=== PATIENT | female | born 1985 | race Two or more races ===

== ENCOUNTER → 2023-05-12 | Outpatient (CLI) | payer OTHER ==
[2023-05-12 11:40] LABS: Basophils # (auto) 0 10 ^3/uL (0-0.2); Basophils % (auto) 0.6 % (0.0-2.0); Eosinophils # (auto) 0.3 10 ^3/uL (0-0.8); Eosinophils % (auto) 4.8 % (0.0-7.0); Hemoglobin 12.2 g/dL (12.2-16.2); Lymphocytes # (auto) 3.2 10 ^3/uL (0.4-5.4); Lymphocytes % (auto) 51.7 % (10.0-50.0); Mean Corpuscular Hemoglobin 30.7 pg (28.0-32.0); Mean Corpuscular Hgb Conc. 32.2 g/dL (32.0-36.0); Mean Corpuscular Volume 95.3 fL (80.0-100.0); Monocytes # (auto) 0.3 10 ^3/uL (0-1.3); Monocytes % (auto) 5.1 % (0.0-12.0); Neutrophils # (auto) 2.3 10 ^3/uL (1.6-8.6); Neutrophils % (auto) 37.8 % (37.0-80.0); Red Blood Cells 3.98 10^6/uL (4.0-5.20); Red Cell Distribution Width 14.7 % (11.8-14.3); White Blood Cell 6.2 10^3/uL (4.4-10.8)
[2023-05-12 11:51] LABS: Urine Bacteria NONE SEEN /hpf (None Seen); Urine Blood Negative /uL (Negative); Urine Clarity Clear (Clear); Urine Color Yellow (Yellow); Urine Mucus FEW (None Seen); Urine Protein, UAD Negative (Negative); Urine Specific Gravity 1.025 (1.001-1.035); Urine Urobilinogen Normal (Negative); Urine WBC 1 /hpf (0 - 5); Urine pH 5.5 (5.0-8.0)
[2023-05-12 12:54] LABS: Alanine Aminotransferase 14 U/L (7-40); Albumin 4.6 g/dL (3.2-4.8); Alkaline Phosphatase 65 U/L (46-116); Anion Gap 7 (5-15); Aspartate Aminotransferase 15 U/L (13-40); Blood Urea Nitrogen 7 mg/dL (9-23); Calcium 9.5 mg/dL (8.5-10.1); Carbon Dioxide 26 mmol/L (20-30); Chloride 106 mmol/L (98-107); Cholesterol 173 mg/dL (< 200); Glucose 184 mg/dL (74-106); LDL Cholesterol 89 mg/dL (< 100); Sodium 139 mmol/L (136-145); Triglycerides 117 mg/dL (< 150)
[2023-05-12 12:55] LABS: Bilirubin, Total 0.5 mg/dL (0.2-1.0); HDL Cholesterol 47 mg/dL (40-59); Total Protein 8.1 g/dL (5.7-8.2)
[2023-05-12 13:01] LABS: % Iron Saturation 8.7 % (15-50)
[2023-05-12 13:37] LABS: Uric Acid 3.2 mg/dL (3.1-7.8)
== END | disposition home or self-care (01) ==
LOC: LAB 10:47
PROVIDERS: ATTEND Family Medicine
DX: E11.8 Type 2 diabetes mellitus with unspecified complications (principal); Z76.89 Persons encountering health services in other specified circumstances
CPT/HCPCS: 80053; 80061; 81001; 82306; 82607; 82785; 83036; 83540; 83550; 84443; 84550

== ENCOUNTER → 2023-06-03 | Outpatient (CLI) | payer OTHER ==
[2023-06-03 11:08] LABS: Basophils # (auto) 0.1 10 ^3/uL (0-0.2); Basophils % (auto) 0.8 % (0.0-2.0); Eosinophils # (auto) 0.2 10 ^3/uL (0-0.8); Eosinophils % (auto) 3.6 % (0.0-7.0); Hematocrit 36.5 % (36.0-46.0); Hemoglobin 11.8 g/dL (12.2-16.2); Lymphocytes # (auto) 2.5 10 ^3/uL (0.4-5.4); Mean Corpuscular Hemoglobin 30.7 pg (28.0-32.0); Mean Corpuscular Hgb Conc. 32.3 g/dL (32.0-36.0); Mean Corpuscular Volume 94.9 fL (80.0-100.0); Monocytes # (auto) 0.3 10 ^3/uL (0-1.3); Monocytes % (auto) 5.1 % (0.0-12.0); Neutrophils # (auto) 3.3 10 ^3/uL (1.6-8.6); Neutrophils % (auto) 51.5 % (37.0-80.0); Red Blood Cells 3.85 10^6/uL (4.0-5.20); Red Cell Distribution Width 14.1 % (11.8-14.3); White Blood Cell 6.5 10^3/uL (4.4-10.8)
[2023-06-03 11:35] LABS: Urine Bacteria NONE SEEN /hpf (None Seen); Urine Blood Negative /uL (Negative); Urine Clarity Clear (Clear); Urine Color Yellow (Yellow); Urine Protein, UAD Negative (Negative); Urine Specific Gravity 1.018 (1.001-1.035); Urine Urobilinogen Normal (Negative); Urine WBC 1 /hpf (0 - 5)
[2023-06-03 11:49] LABS: Alanine Aminotransferase 10 U/L (7-40); Alkaline Phosphatase 64 U/L (46-116); Anion Gap 6 (5-15); BUN/Creatinine Ratio 7.9 (10.0-20.0); Blood Urea Nitrogen 6 mg/dL (9-23); Calcium 9.4 mg/dL (8.5-10.1); Carbon Dioxide 24 mmol/L (20-30); Chloride 107 mmol/L (98-107); Glucose 132 mg/dL (74-106); Potassium 4.3 mmol/L (3.5-5.1); Sodium 137 mmol/L (136-145); Triglycerides 86 mg/dL (< 150)
[2023-06-03 11:50] LABS: LDL Cholesterol 74 mg/dL (< 100)
[2023-06-03 11:51] LABS: Albumin 4.5 g/dL (3.2-4.8); Aspartate Aminotransferase 15 U/L (13-40); Bilirubin, Total 0.6 mg/dL (0.2-1.0); Cholesterol 149 mg/dL (< 200); HDL Cholesterol 45 mg/dL (40-59); Total Protein 7.9 g/dL (5.7-8.2)
[2023-06-03 11:54] LABS: % Iron Saturation 11.6 % (15-50)
[2023-06-03 12:32] LABS: Uric Acid 3.4 mg/dL (3.1-7.8)
== END | disposition home or self-care (01) ==
LOC: LAB 10:41
PROVIDERS: ATTEND Family Medicine
DX: E11.9 Type 2 diabetes mellitus without complications (principal); Z76.89 Persons encountering health services in other specified circumstances
CPT/HCPCS: 36415; 80053; 80061; 81001; 82746; 83036; 83540; 83550; 84443; 84550; 85025

== ENCOUNTER → 2024-06-16 | Outpatient (CLI) | payer OTHER ==
[2024-06-16 14:59] LABS: Urine Bacteria None Seen /hpf (None Seen)
[2024-06-16 15:00] LABS: Basophils # (auto) 0 10 ^3/uL (0-0.2); Basophils % (auto) 0.7 % (0.0-2.0); Eosinophils # (auto) 0.2 10 ^3/uL (0-0.8); Eosinophils % (auto) 2.9 % (0.0-7.0); Hematocrit 38.9 % (36.0-46.0); Hemoglobin 12.3 g/dL (12.2-16.2); Lymphocytes % (auto) 44.2 % (10.0-50.0); Mean Corpuscular Hemoglobin 28.8 pg (28.0-32.0); Mean Corpuscular Hgb Conc. 31.6 g/dL (32.0-36.0); Mean Corpuscular Volume 91.1 fL (80.0-100.0); Monocytes # (auto) 0.3 10 ^3/uL (0-1.3); Neutrophils # (auto) 3.2 10 ^3/uL (1.6-8.6); Neutrophils % (auto) 47.2 % (37.0-80.0); Nucleated Red Blood Cells % 0.1 %; Platelet Count (auto) 297 10^3/uL (140-450); Red Blood Cells 4.27 10^6/uL (4.0-5.20); Red Cell Distribution Width 15.1 % (11.8-14.3); White Blood Cell 6.8 10^3/uL (4.4-10.8)
[2024-06-16 15:33] LABS: Urine Blood Negative /uL (Negative); Urine Clarity Turbid (Clear); Urine Color Yellow (Yellow); Urine Mucus FEW (None Seen); Urine Protein, UAD TRACE (Negative); Urine Specific Gravity 1.029 (1.001-1.035); Urine Squamous Epithelial Cell MOD /hpf (<5); Urine Urobilinogen Normal (Negative); Urine WBC 1 /HPF (0-5)
[2024-06-16 16:26] LABS: Alkaline Phosphatase 78 U/L (46-116); Calcium 9.9 mg/dL (8.7-10.4); Carbon Dioxide 26 mmol/L (20-31); Chloride 105 mmol/L (98-107)
[2024-06-16 16:27] LABS: % Iron Saturation 10.6 % (15-50); Albumin 4.6 g/dL (3.2-4.8); Anion Gap 6 (5-15); BUN/Creatinine Ratio 11.8 (10.0-20.0); Bilirubin, Total 0.4 mg/dL (0.2-1.0); Blood Urea Nitrogen 10 mg/dL (9-23); Cholesterol 162 mg/dL (< 200); GFR African American 95 mL/min; GFR Non-African American 79 mL/min; HDL Cholesterol 46 mg/dL (40-59); LDL Cholesterol 75 mg/dL (< 100); Phosphorus 3.8 mg/dL (2.4-5.1); Potassium 4.5 mmol/L (3.5-5.1); Sodium 137 mmol/L (136-145); Total Protein 7.9 g/dL (5.7-8.2)
[2024-06-16 16:35] LABS: Aspartate Aminotransferase 10 U/L (13-40); Glucose 176 mg/dL (74-106)
[2024-06-16 16:36] LABS: Alanine Aminotransferase < 9 U/L (7-40); Triglycerides 200 mg/dL (< 150)
== END | disposition home or self-care (01) ==
LOC: LAB 14:43
PROVIDERS: ATTEND Family Medicine
DX: I10 Essential (primary) hypertension (principal); E11.8 Type 2 diabetes mellitus with unspecified complications; Z91.018 Allergy to other foods
CPT/HCPCS: 36415; 80053; 80061; 80069; 81001; 83036; 83540; 83550; 84443; 85025

== ENCOUNTER 2024-12-25 14:20 | Emergency (ER) | payer OTHER ==
[~2024-12-25] VITALS: Ht 167.6 cm; Wt 94.5 kg
[2024-12-25 14:56] LABS: Hematocrit 35.6 % (36.0-46.0); Hemoglobin 11.5 g/dL (12.2-16.2); Mean Corpuscular Hemoglobin 29.0 pg (28.0-32.0); Mean Corpuscular Volume 89.4 fL (80.0-100.0); Nucleated Red Blood Cells % 0.1 %
[2024-12-25 15:01] LABS: Chloride 107 mmol/L (98-107); Potassium 3.9 mmol/L (3.5-5.1); Sodium 141 mmol/L (136-145)
[2024-12-25 15:02] LABS: Anion Gap 8 (5-15); Calcium 9.1 mg/dL (8.7-10.4); Carbon Dioxide 26 mmol/L (20-31)
[2024-12-25 15:09] LABS: BUN/Creatinine Ratio 6.0 (10.0-20.0); Blood Urea Nitrogen < 5 mg/dL (9-23); Glucose 111 mg/dL (74-106)
--- NOTE | 2024-12-25 15:24 | ED.PDOC ---
HPI Comments 39 y/o female with history of asthma, DM, HLD, left breast mass and tobacco use presents with c/c right sided chest pain, shortness of breath, and wheezing for the past week. She describes the pain as tightness/soreness, worse with inspiration and movement, no particular alleviating factors. Patient has a history of recently diagnosed left breast mass for which she is undergoing further workup. She also notes both breasts are sore. She denies fever, dizziness, syncope, nausea, vomiting, diaphoresis or edema. Chief Complaint: Chest Pain Time Seen by MD: 14:20 Reviewed Notes: Nurses Notes, Medications, Allergies Allergies: Coded Allergies: NO KNOWN ALLERGIES (Unverified , 12/25/24) Information Source: Patient Mode of Arrival: Ambulatory Past Medical History PAST MEDICAL HISTORY: Asthma, DM, High Lipids Past Medical History (Other): Obesity Surgical History: Denies all surgeries BOW MAKER History: Denies all BOW MAKER Hx Family History Family History: Reviewed,noncontributory to illness Social History Smoker: Cigarettes, Other (nicotine vape) Alcohol: Denies ETOH Use Drugs: Denies Drug Use Lives In: Home All Other Systems: Reviewed and Negative (Comprehensive systems review obtained and negative except for what is stated in the HPI.) Physical Exam General Appearance: Mild Distress, Obese HEENT: Other (Pupils and face symmetric. Moist mucous membranes.) Neck: Full Range of Motion, Normal Inspection Respiratory: No Accessory Muscle Use, No Respiratory Distress, Wheezing Cardiovascular: No Edema, No JVD, Regular Rate/Rhythm Breast Exam: Deferred Gastrointestinal: Non Tender, Soft Genitalia: Deferred Pelvic: Deferred Rectal: Deferred Extremities: Normal inspection, Normal range of motion, Non-tender, No pedal edema Neurologic: Alert (Oriented x4), Normal Affect, Normal Mood, Other (Ambulatory) Cerebellar Function: NOT DONE Reflexes: NOT DONE Skin: Dry, Normal Color, Warm Lymphatic: NOT DONE EKG EKG : Comments Sinus rhythm, rate 76, normal intervals, normal axis, normal QRS, nonspecific T change. Was a procedure done? Was a procedure done?: No CP Differential Dx Differential Diagnosis: Pulmonary Embolus Differential Diagnosis: N/A Differential Diagnosis: Angina, Chest Wall Pain, Cholelithiasis, Costochondritis, Esophageal reflux/spasm, Gastritis, Myocardial Infarction, Pericarditis, Pneumonia, Pulmonary Embolus X-Ray, Labs, Meds, VS Vital Signs Date Time Temp Pulse Resp B/P (MAP) Pulse Ox O2 Delivery O2 Flow Rate FiO2 12/25/24 21:39 Room Air* 0 21 12/25/24 20:29 98.0 75 14 117/69 (85) 100 98.0 12/25/24 20:15 18 100 Room Air* 0 21 12/25/24 15:26 76 12/25/24 14:21 98.6 83 16 115/73 99 98.6 12/25/24 14:20 81 Lab Test 12/25/24 16:51 12/25/24 15:49 12/25/24 14:34 Range/Units Urine Color Light-yellow Yellow Urine Clarity Clear Clear Urine pH 5.0 5.0-9.0 Urine Specific [employer] 1.016 1.001-1.035 Urine Protein Negative Negative Urine Ketones Negative Negative Urine Blood Negative Negative /uL Urine Nitrite Negative Negative Urine Bilirubin Negative Negative Urine Urobilinogen Normal Negative mg/dL Urine Leukocyte Esterase Negative Negative /uL Urine RBC <1 0 - 4 /hpf Urine Microscopic WBC 1 0-5 /HPF Urine Squamous Epithelial Cells Few <5 /hpf Urine Bacteria None seen None Seen /hpf Urine Mucus Few None Seen Urine Glucose Trace Normal mg/dL Urine Test Negative Negative Troponin I High Sensitivity < 3 L < 3 L </=34 ng/L White Blood Count 9.0 4.4-10.8 10^3/uL Red Blood Count 3.98 L 4.0-5.20 10^6/uL Hemoglobin 11.5 L 12.2-16.2 g/dL Hematocrit 35.6 L 36.0-46.0 % Mean Corpuscular Volume 89.4 80.0-100.0 fL Mean Corpuscular Hemoglobin 29.0 28.0-32.0 pg Mean Corpuscular Hemoglobin Concent 32.4 32.0-36.0 g/dL Red Cell Distribution Width 14.8 H 11.8-14.3 % Platelet Count 380 140-450 10^3/uL Mean Platelet Volume 7.5 6.9-10.8 fL Neutrophils (%) (Auto) 54.2 37.0-80.0 % Lymphocytes (%) (Auto) 35.7 10.0-50.0 % Monocytes (%) (Auto) 6.6 0.0-12.0 % Eosinophils (%) (Auto) 3.0 0.0-7.0 % Basophils (%) (Auto) 0.5 0.0-2.0 % Neutrophils # (Auto) 4.9 1.6-8.6 10 ^3/uL Lymphocytes # (Auto) 3.2 0.4-5.4 10 ^3/uL Monocytes # (Auto) 0.6 0-1.3 10 ^3/uL Eosinophils # (Auto) 0.3 0-0.8 10 ^3/uL Basophils # (Auto) 0 0-0.2 10 ^3/uL Nucleated Red Blood Cells 0.1 % D-Dimer, Quantitative 0.52 H 0.0-0.49 mg/L FEU Sodium Level 141 136-145 mmol/L Potassium Level 3.9 3.5-5.1 mmol/L Chloride Level 107 98-107 mmol/L Carbon Dioxide Level 26 20-31 mmol/L Anion Gap 8 5-15 Blood Urea Nitrogen < 5 L 9-23 mg/dL Creatinine 0.84 0.550-1.02 mg/dL Glomerular Filtration Rate Calc 90 >90 mL/min BUN/Creatinine Ratio 6.0 L 10.0-20.0 Serum Glucose 111 H 74-106 mg/dL Calcium Level 9.1 8.7-10.4 mg/dL B-Type Natriuretic Peptide 58.78 0-100 pg/mL Current Medications Medications (Trade) Dose Ordered Sig/Jah Route Start Time Stop Time Status Last Admin Ketorolac Tromethamine (Toradol Injection) 30 mg ONCE ONCE IV 12/25/24 20:00 12/25/24 20:11 DC 12/25/24 21:36 Methylprednisolone Sodium Succinate (Solu Medrol) 125 mg ONCE ONCE IV 12/25/24 20:00 12/25/24 20:11 DC 12/25/24 21:[address] [address] Ph: [phone] DIAGNOSTIC IMAGING Diagnostic Imaging Report : [id number] Signed PATIENT: THERESA PINA ACCT: [id number] UNIT: [id number] : 1985 LOC: ER ROOM / BED: / AGE / SEX: 39 / F ADM STATUS: REG ER SERVICE [id number] ORDERING PHYSICIAN: DANNY LEACH MD PROCEDURE(s): CXRP - CHEST PORTABLE REASON: cp ORDER NUMBER(s): [id number], ACCESSION NUMBER(s): [id number] CHEST RADIOGRAPH Indication: cp Technique: Single frontal view of the chest was obtained Comparison: None FINDINGS: Lines and Tubes: None Lungs: No focal consolidation. Pleura: No effusion. No pneumothorax. Cardiomediastinal contours: Unremarkable Bones: No acute osseous abnormality. IMPRESSION: No acute cardiopulmonary disease. ATED BY: JULISA GUPTA DO DICTATED DATE/TIME: 12/25/241802 SIGNED BY: JULISA GUPTA DO SIGNED DATE/TIME: 12/25/241802 CC: PROCEDURE(s): CTACH - CT ANGIO CHEST CONTRAST REASON: Right Sided chest pain, sob, elevated D-dimer, rule out PE ORDER NUMBER(s): [id number], ACCESSION NUMBER(s): [id number] EXAM: CT CT ANGIO CHEST CONTRAST History: Right Sided chest pain, sob, elevated D-dimer, rule out PE Comparison Study: None TECHNIQUE: A digital maintenance tech image was obtained. During the uneventful, intravenous administration of contrast material, multislice data acquisition was obtained through the chest. 3-D postprocessing is performed by technologist including MIP imaging Radiation Dose : CTDI vol 21.4 mGy, DLP 1715.67 mGy*cm. Findings: Evaluation is degraded by respiratory motion. Lungs: There is minimal scattered atelectasis / scarring. Pleura: Unremarkable Heart/Great vessels: No cardiomegaly or pericardial effusion. Suboptimal evaluation for subsegmental pulmonary emboli. No central pulmonary emboli are identified. Mediastinum: Unremarkable. Soft tissues/Bones: Unremarkable Upper abdomen: The partially visualized upper abdomen is within normal limits. Impression: 1. No CT evidence of acute central pulmonary embolism. Suboptimal evaluation for subsegmental pulmonary emboli. 2. Incidental findings as detailed. X-Ray, Labs, Meds, VS Comment 39 y/o female with history of asthma, DM, HLD, left breast mass and tobacco use presents with c/c right sided chest pain, shortness of breath, and wheezing for the past week. Vitals unremarkable Exam remarkable for wheezing without respiratory distress Rhythm strip independently interpreted by me: Sinus rhythm, rate 76, no ectopy. Chest x-ray unremarkable CBC, basic metabolic panel, BNP, troponins, urine and UA unremarkable. D-dimer 0.52 CT angio chest Impression: 1. No CT evidence of acute central pulmonary embolism. Suboptimal evaluation for subsegmental pulmonary emboli. 2. Incidental findings as detailed. Patient treated with the following in the ED: Albuterol 5 mg/Atrovent 0.5 mg nebulized, Toradol 30 mg IV, Solu-Medrol 125 mg IV On re-evaluation, chest pain has improved. Vitals were stable. Wheezing has resolved. Hospitalization was considered, however patient had rapid improvement of symptoms with treatment in the ED, and I no longer feel hospitalization is necessary. Patient now appears stable for discharge with close outpatient follow-up with her primary physician. Time of 1ST Reevaluation: 14:50 Reevaluation 1ST: Unchanged Patient Education/Counseling: Diagnosis, Treatment, Need For Follow Up Family Education/Counseling: No Family Present SEPSIS Sepsis Screen Date sepsis recognized/suspect: Dec 25, 2024 Time Sepsis recognized/suspect: 1424 Recent Procedure: No On Antibiotic Therapy: No Respiratory Rate >20: No Heart Rate >90: No Temp<36 C (96.8 F) or >38.3 C: No SBP <90 or MAP <65 mmHG: No New Acute Mental Status Change: No Is the patient on CPAP, BIPAP,: No Physician Orders Electrocardigram (12/25/24 14:15) Electrocardigram (12/25/24 15:27) Electrocardigram (12/25/24 17:27) Chest Portable (12/25/24 14:35) Ct Angio Chest Contrast (12/25/24 19:35) Vital Signs Date Time Temp Pulse Resp B/P (MAP) Pulse Ox O2 Delivery O2 Flow Rate FiO2 12/25/24 21:39 Room Air* 0 21 12/25/24 20:29 98.0 75 14 117/69 (85) 100 98.0 12/25/24 20:15 18 100 Room Air* 0 21 12/25/24 15:26 76 12/25/24 14:21 98.6 83 16 115/73 99 98.6 12/25/24 14:20 81 Laboratory Tests Test 12/25/24 14:34 White Blood Count 9.0 10^3/uL (4.4-10.8) Medications Medications Dose Ordered Sig/Jah Route Start Time Stop Time Status Last Admin Dose Admin Albuterol 5 mg STK-MED ONCE .ROUTE 12/25/24 20:05 12/25/24 20:02 DC 12/25/24 20:11 Ipratropium [place] 0.5 mg STK-MED ONCE .ROUTE 12/25/24 20:06 12/25/24 20:03 DC 12/25/24 20:11 Ketorolac Tromethamine 30 mg ONCE ONCE IV 12/25/24 20:00 12/25/24 20:11 DC 12/25/24 21:36 Methylprednisolone Sodium Succinate 125 mg ONCE ONCE IV 12/25/24 20:00 12/25/24 20:11 DC 12/25/24 21:37 Departure 1 Departure Time of Disposition: 20:30 Impression: Primary Impression: Acute bronchitis Additional Impression: Asthma exacerbation Disposition: HOME / SELF CARE / HOMELESS Condition: Stable Additional Instructions: Your blood tests, including screening test for heart attack and heart failure, were unremarkable except for an abnormal screening test for blood clots. Your chest x-ray was normal. Your CT scan did not show any blood clots. Your symptoms are likely due to airway inflammation. I have prescribed pain medication antibiotics for possible respiratory infection, and an inhaler. Follow-up with your primary doctor in 1-2 days. e-Prescriptions Ibuprofen Micronized (Ibuprofen) 800 Mg Tab 800 MG PO Q8HP PRN, #30 TAB Prn pain. Take with food. Prov: DANNY LEACH MD 12/25/24 Albuterol Sulfate (VENTOLIN MDI) 90 Mcg Ih 2 PUFF IN Q6HP PRN, #1 INH Prn wheezing or difficulty breathing Prov: DANNY LEACH MD 12/25/24 Amoxicillin & Pot Clavulanate (AUGMENTIN TABLET) 875 Mg Tb 875 MG PO BID for 10 Days, #20 TAB Prov: DANNY LEACH MD 12/25/24 Discharged With: Relative Critical Care Note Critical Care Time?: No Stability Stability form required: No Heart Score Heart Score: Heart Score Response (Comments) Value History Moderate Suspicious 1 EKG Normal 0 Age <45 0 Risk Factors 1 or 2 risk factors 1 Troponin Normal limit 0 Total 2 I personally scribed for DANNY LEACH MD ([email or web address]) on 12/25/24 at 15:24. Electronically submitted by Aki Eason ([email or web address]). I personally scribed for DANNY LEACH MD ([email or web address]) on 12/25/24 at 19:22. Electronically submitted by Aki Eason ([email or web address]). DANNY LEACH MD Dec 25, 2024 15:24
[2024-12-25 17:10] LABS: Urine Protein, UAD Negative (Negative)
--- NOTE | 2024-12-25 18:05 | DVH ---
CHEST RADIOGRAPH Indication: cp Technique: Single frontal view of the chest was obtained Comparison: None FINDINGS: Lines and Tubes: None Lungs: No focal consolidation. Pleura: No effusion. No pneumothorax. Cardiomediastinal contours: Unremarkable Bones: No acute osseous abnormality. IMPRESSION: No acute cardiopulmonary disease.
[2024-12-25] MEDS: IPRATROPIUM BROM 0.5 MG/2.5ML INH SOL ONE (20:11)
[2024-12-25] MEDS: ALBUTEROL SULF 2.5 MG/0.5ML(0.5%) NEB SOLN ONE (20:11)
[2024-12-25 20:29] VITALS: BP 117/69; PULSE 75; RESP 14; TEMP 98; O2SAT 100
[2024-12-25] MEDS: IOHEXOL 350 MG/ML 100ML IJ ONE (20:59)
[2024-12-25] MEDS: KETOROLAC TROMETH 30 MG/ML 1ML VIAL IV ONE (21:36)
[2024-12-25] MEDS: methylPREDNISolone SOD SUCC 125 MG/2 ML VL IV ONE (21:37)
--- NOTE | 2024-12-25 21:46 | DVH ---
EXAM: CT CT ANGIO CHEST CONTRAST History: Right Sided chest pain, sob, elevated D-dimer, rule out PE Comparison Study: None TECHNIQUE: A digital as400 analyst image was obtained. During the uneventful, intravenous administration of c ontrast material, multislice data acquisition was obtained through the chest. 3-D postprocessing is performed by technologist including MIP imaging Radiation Dose : CTDI vol 21.4 mGy, DLP 1715.67 mGy*cm. Findings: Evaluation is degraded by respiratory motion. Lungs: There is minimal scattered atelectasis / scarring. Pleura: Unremarkable Heart/Great vessels: No cardiomegaly or pericardial effusion. Suboptimal evaluation for subsegmental pulmonary emboli. No central pulmonary emboli are identified. Mediastinum: Unremarkable. Soft tissues/Bones: Unremarkable Upper abdomen: The partially visualized upper abdomen is within normal limits. Impression: 1. No CT evidence of acute central pulmonary embolism. Suboptimal evaluation for subsegmental pulmona ry emboli. 2. Incidental findings as detailed.
[2024-12-25] MEDS ORDERED: IBUP-1455 PO (22:12)
[2024-12-25] MEDS ORDERED: ALBUAER3 IN (22:12)
[2024-12-25] MEDS ORDERED: AUG875T PO (22:12)
[2024-12-25] MEDS: IPRATROPIUM BROM 0.5 MG/2.5ML INH SOL NEB ONE (22:26)
[2024-12-25] MEDS: ALBUTEROL SULF 2.5 MG/0.5ML(0.5%) NEB SOLN NEB ONE (22:27)
--- NOTE | 2024-12-27 08:58 | ECG ---
[facility] Test Date: 2024-12-25 Test Time: 15:26:34 Pat Name: THERESA PINA Department: ED Room: Gender: F Insurance Marketing Rep: TYRON : 1985 Requested By: ROEL NEWMAN Order Number: [id number] Reading MD: Measurements Intervals [place] Rate: 76 P: 51 [place]: 159 QRS: 43 QRSD: 76 T: 1 QT: 384 QTc: 432 Interpretive Statements Sinus rhythm Borderline T abnormalities, diffuse leads Please click the below link to view image of tracing.
--- NOTE | 2024-12-27 09:15 | ECG ---
[facility] Test Date: 2024-12-25 Test Time: 14:16:28 Pat Name: THERESA PINA Department: ED Room: Gender: F Cardiology Coordinator: ANA : 1985 Requested By: ROEL NEWMAN Order Number: [id number] Reading MD: Measurements Intervals [place] Rate: 81 P: 61 [place]: 166 QRS: 51 QRSD: 71 T: 0 QT: 375 QTc: 436 Interpretive Statements Sinus rhythm Borderline T abnormalities, diffuse leads Please click the below link to view image of tracing.
== END 2024-12-25 22:27 | disposition home or self-care (01) ==
LOC: ER 14:20
DX: J02.9 Acute pharyngitis, unspecified (principal); J20.9 Acute bronchitis, unspecified; J45.901 Unspecified asthma with (acute) exacerbation; E11.9 Type 2 diabetes mellitus without complications; E78.5 Hyperlipidemia, unspecified; F17.210 Nicotine dependence, cigarettes, uncomplicated; F17.290 Nicotine dependence, other tobacco product, uncomplicated
CPT/HCPCS: 36415; 71045; 71275; 80048; 81001; 81025; 83880; 84484; 85025; 85379; 94640; 96374; 96375; 99285; J1885; J2919; Q9967; 93005

== ENCOUNTER 2025-01-05 06:29 | Outpatient (CLI) | payer OTHER ==
[~2025-01-05 06:29] MED LIST: ALBUAER3 IN; AUG875T PO; IBUP-1455 PO
[2025-01-05 07:17] LABS: Alanine Aminotransferase 16 U/L (7-40); Albumin 4.2 g/dL (3.2-4.8); Alkaline Phosphatase 64 U/L (46-116); Anion Gap 11 (5-15); BUN/Creatinine Ratio 8.5 (10.0-20.0); Carbon Dioxide 23 mmol/L (20-31); Chloride 107 mmol/L (98-107); Cholesterol 116 mg/dL (< 200); HDL Cholesterol 43 mg/dL (40-59); Potassium 3.6 mmol/L (3.5-5.1); Sodium 141 mmol/L (136-145); Total Protein 7.7 g/dL (5.7-8.2); Triglycerides 95 mg/dL (< 150)
[2025-01-05 07:18] LABS: Bilirubin, Total 0.6 mg/dL (0.2-1.0)
[2025-01-05 07:22] LABS: Blood Urea Nitrogen 7 mg/dL (9-23); Calcium 8.6 mg/dL (8.7-10.4); Glucose 146 mg/dL (74-106)
== END 2025-01-05 17:00 | disposition home or self-care (01) ==
LOC: LAB 06:29
PROVIDERS: ATTEND Family Medicine
DX: I10 Essential (primary) hypertension (principal); E11.8 Type 2 diabetes mellitus with unspecified complications; E78.2 Mixed hyperlipidemia; Z91.09 Other allergy status, other than to drugs and biological substances
CPT/HCPCS: 36415; 80053; 80061; 83036